=== PATIENT | female | born 2000 | race African-American/Black ===

== ENCOUNTER 2021-01-24 06:04 | Inpatient (IN) ==
[2021-01-24] MEDS ORDERED: ONDANSETRON 4 MG/2 ML VIAL IV PRN ×2 (06:20→12:10)
[2021-01-24] MEDS ORDERED: LACTATED RINGERS 1,000 ML IV SCH (06:30)
[2021-01-24] MEDS ORDERED: miSOPROStoL 200 MCG TABLET ONE (06:33)
[2021-01-24] MEDS ORDERED: OXYTOCIN/LR 20 UNIT/1,000 ML BAG IV ONE ×3 (06:34→12:10)
[2021-01-24] MEDS ORDERED: CARBOPROST TROMETHAMINE 250 MCG/ML AMP IM ONE (06:34)
[2021-01-24] MEDS ORDERED: METHYLERGONOVINE 0.2 MG/1 ML AMP ONE (06:34)
[2021-01-24] MEDS ORDERED: TRANEXAMIC ACID 1,000 MG/10 ML VIAL ONE (06:34)
[2021-01-24 06:53] LABS: Basophils % 0.3 % (0.0-0.8); Eosinophils # 0.2 10*3/uL (0.0-0.87); Eosinophils % 1.6 % (0.00-10.9); Hemoglobin 10.4 GM/DL (12.0-16.0); Immature Granulocytes % 0.7 %; Immature Granulocytes Absolute 0.08 #; Lymphocytes # 2.8 10*3/uL (1.4-4.0); Lymphocytes % 23.3 % (21.3-54.2); Mean Corpuscular HGB Conc 33.5 GM/DL (32-36); Mean Corpuscular Volume 95.7 FL (87-102); Mean Platelet Volume 9.6 FL (9.6-12.0); Monocytes % 8.2 % (1.7-12.7); Neutrophils % 65.9 % (38.7-73.9); Platelet Count 237 T/CUMM (130-400); Red Blood Count 3.24 MC/CUMM (3.8-5.5); Red Cell Distribution Width 13.6 % (9.3-17.3); White Blood Count 11.8 T/CUMM (4-12)
[2021-01-24 06:57] LABS: Bilirubin,Urine Negative (Negative); Blood, Urine Large mg/dL (Negative); Glucose,Urine (UA) Negative (Negative); Ketones,Urine Negative (Negative); Mucus,Urine Few /LPF (Occasional); Nitrite,Urine Negative (Negative); Protein,Urine 30 MG/DL; RBC,Urine 743 /HPF (0-4); Squamous Epithelial Cell,Urine Occasional /HPF (0-10); Urine Appearance Slightly Hazy (Clear); Urine Color Yellow (Yellow); Urine Specific Gravity 1.025 (1.001-1.035)
[2021-01-24 06:58] LABS: Barbiturates Screen,Urine Negative (Negative); Benzodiazepines Screen,Urine Negative (Negative); Cannabinoid Screen,Urine Negative (Negative); Opiate Screen,Urine Negative (Negative); Phencyclidine Screen,Urine Negative (Negative)
[2021-01-24 07:18] LABS: Alanine Aminotransferase 11 U/L (13-56); Albumin 2.9 G/DL (3.4-5.0); Alkaline Phosphatase 71 U/L (45-117); Aspartate Amino Transferase 11 U/L (0-37); Bilirubin,Total < 0.39 MG/DL (0.2-1.0); Blood Urea Nitrogen 8 MG/DL (7-18); Calcium 8.8 MG/DL (8.5-10.1); Carbon Dioxide 17 MMOL/L (21-32); Estimated Glom Filtration Rate 187 ML/MIN; Glucose 86 MG/DL (74-106); Osmolality,Calculated 266.1 MOS/KG (273-304); Potassium 3.7 MMOL/L (3.5-5.1); Sodium 135 MMOL/L (136-145); Total Protein 6.3 G/DL (6.4-8.2)
[2021-01-24] MEDS: MEPERIDINE 50 MG/1 ML VIAL IV PRN ×2 (07:42→10:24)
[2021-01-24] MEDS ORDERED: AMPICILLIN/SULBACTAM 3,000 MG in SODIUM CHLORIDE 0.9% 100 ML IV ONE (09:51)
[2021-01-24] MEDS ORDERED: miSOPROStoL 200 MCG TABLET RECTAL ONE ×2 (10:59→12:02)
[2021-01-24] MEDS ORDERED: METHYLERGONOVINE 0.2 MG/1 ML AMP IM ONE (12:06)
[2021-01-24] MEDS ORDERED: ACETAMINOPHEN 325 MG TABLET PO PRN (12:10)
[2021-01-24] MEDS ORDERED: WITCH HAZEL PADS 100/JAR TOP PRN (12:10)
[2021-01-24] MEDS ORDERED: RHO(D) IMMUNE GLOBULIN 300 MCG SYRINGE IM ONE (12:10)
[2021-01-24] MEDS ORDERED: BENZOCAINE 20%/MENTHOL 0.5% SPRAY 56 GM CAN TOP PRN (12:10)
[2021-01-24] MEDS ORDERED: LANOLIN 50% CREAM 0.3 OZ TUBE TOP PRN (12:10)
[2021-01-24] MEDS ORDERED: MEASLES/MUMPS/RUBELLA VACCINE 0.5 ML VIAL SUBCUT ONE (12:10)
[2021-01-24] MEDS ORDERED: DIPH/TET/ACEL PERT BOOSTER VACCINE 0.5 ML VIAL IM ONE (12:10)
[2021-01-24] MEDS ORDERED: BISACODYL 10 MG SUPP RECTAL PRN (12:10)
[2021-01-24] MEDS ORDERED: oxyCODONE/ACETAMINOPHEN 5-325 MG TABLET PO PRN ×2 (12:10)
[2021-01-24] MEDS ORDERED: HYDROCORTISONE 2.5% RECTAL CREAM 30 GM TUBE TOP PRN (12:10)
[2021-01-24] MEDS ORDERED: MEPERIDINE 50 MG/1 ML VIAL IV ONE (12:30)
[2021-01-24] MEDS: IBUPROFEN 800 MG TABLET PO PRN (17:01)
[2021-01-24] MEDS: AMPICILLIN/SULBACTAM 1,500 MG in SODIUM CHLORIDE 0.9% 100 ML IV SCH ×2 (17:29→23:34)
[2021-01-24] MEDS: DOCUSATE SODIUM 100 MG CAPSULE PO SCH (20:15)
[2021-01-24] MEDS: METHYLERGONOVINE 0.2 MG TABLET PO SCH (20:15)
[2021-01-25] MEDS: METHYLERGONOVINE 0.2 MG TABLET PO SCH (04:16)
[2021-01-25 05:24] LABS: Lymphocytes # 2.5 10*3/uL (1.4-4.0); Neutrophils % 74.4 % (38.7-73.9); Red Cell Distribution Width 13.6 % (9.3-17.3)
[2021-01-25] MEDS: AMPICILLIN/SULBACTAM 1,500 MG in SODIUM CHLORIDE 0.9% 100 ML IV SCH (05:38)
[2021-01-25 05:42] LABS: Basophils % 0.3 % (0.0-0.8); Eosinophils # 0.1 10*3/uL (0.0-0.87); Eosinophils % 0.5 % (0.00-10.9); Hematocrit 22.3 VOL% (35.7-47.0); Immature Granulocytes % 0.6 %; Immature Granulocytes Absolute 0.09 #; Lymphocytes % 16.4 % (21.3-54.2); Mean Corpuscular HGB Conc 34.1 GM/DL (32-36); Mean Corpuscular Volume 94.1 FL (87-102); Mean Platelet Volume 9.8 FL (9.6-12.0); Monocytes % 7.8 % (1.7-12.7); Platelet Count 197 T/CUMM (130-400); White Blood Count 15.2 T/CUMM (4-12)
[2021-01-25 05:44] LABS: Hemoglobin 7.6 GM/DL (12.0-16.0); Red Blood Count 2.37 MC/CUMM (3.8-5.5)
[2021-01-25] MEDS: IBUPROFEN 800 MG TABLET PO PRN (07:16)
[2021-01-25 07:18] VITALS: BP 128/62
[2021-01-25] MEDS: DOCUSATE SODIUM 100 MG CAPSULE PO SCH (08:11)
== END 2021-01-25 10:43 | disposition home or self-care (01) | DRG 541 ==
LOC: N.LDOUT 06:04 → N.LD 06:06 → N.OB 16:01
PROVIDERS: ADMIT Specialist; ATTEND Specialist